=== PATIENT | female | born 1980 | race African-American/Black ===

== ENCOUNTER 2016-10-27 12:44 | Emergency (ER) | payer OTHER ==
[~2016-10-27] VITALS: Ht 167.6 cm; Wt 62.2 kg
[~2016-10-27 12:44] MED LIST: AMITRIPTYLINE H10 MG PO; AMITRIPTYLINE H25 MG PO; ASCORBIC ACID500 M3 PO; ASPIRIN81 M1 PO; AVENTYL,PAMELOR10 MG PO; CITALOPRAM HBR20 MG PO; CYMBALTA60 MG PO; DIAMOX250 MG PO; DILANTIN100 MG PO; ENDOCET 5-3251 EACH PO; FAMOTIDINE40 MG PO; FERROUS SULFAT325 MG PO; FLEXERIL10 MG PO; FOLIC ACID1 MG PO; LEVETIRACETAM1000 MG PO; LOVENOX40 MG/0.4 SC; MOTRIN600 MG PO; NOHOMEMEDS; SENNA-TIME S T1 EACH PO; THERAGRAN1 TABLET PO; TOPIRAMATE25 MG PO; TRAMADOL HCL50 MG PO; TYLENOL WITH C1 EACH PO; WARFARIN SODIUM1 MG PO
[2016-10-27 13:51] LABS: HEMATOCRIT 42.4 % (36.0-46.0); MCH 22.2 PG (29.0-34.0); MCV 74.1 FL (83-99); RBC DIS.WIDTH-CV 13.7 % (11.8-14.6); RBC DIS.WIDTH-SD 36.1 % (39-53); RED BLOOD COUNT 5.72 M/uL (3.80-5.20); WHITE BLOOD COUNT 4.1 K/uL (4.1-10.2)
[2016-10-27 13:52] LABS: CHLORIDE 108 mEq/L (99-109); POTASSIUM 3.7 mEq/L (3.7-5.4); SODIUM 140 mEq/L (136-147)
[2016-10-27 13:54] LABS: GLUCOSE 87 mg/dL (70-99)
[2016-10-27 13:55] LABS: ANION GAP 7 MEQ/L (2-14)
[2016-10-27 13:58] LABS: GFR ESTIMATE (CALCULATED) > 59 mL/min/
[2016-10-27 13:59] LABS: UREA NITROGEN (BUN) 6 mg/dL (9-23)
[2016-10-27 14:01] LABS: TROP-I INTERPRETATION NEGATIVE; TROPONIN-I < 0.01 ng/mL (0.0-0.30)
[2016-10-27 14:06] LABS: MEAN PLAT.VOLUME 10.2 uM^3 (9.5-12.4); PLATELET COUNT 240 K/uL (156-360)
[2016-10-27 15:09] LABS: INTER. NORMALIZED RATIO 2.7; PROTHROMBIN TIME 27.9 (9.2-11.2); PTT 38.4 (25-32)
[2016-10-27 15:39] LABS: TROP-I INTERPRETATION NEGATIVE; TROPONIN-I 0.01 ng/mL (0.0-0.30)
[2016-10-27 16:56] VITALS: BP 121/77
== END 2016-10-27 16:57 | disposition home or self-care (01) ==
LOC: EME 12:44 → RME 12:44
PROVIDERS: Physician Assistant
DX: R07.9 Chest pain, unspecified (principal); R79.1 Abnormal coagulation profile; Z95.2 Presence of prosthetic heart valve; Z86.73 Personal history of transient ischemic attack (TIA), and cerebral infarction without residual deficits; R56.9 Unspecified convulsions; Z79.01 Long term (current) use of anticoagulants
CPT/HCPCS: 71020; 80048; 84484; 85027; 85610; 85730; 93005; 99281; 99284

== ENCOUNTER 2017-03-06 10:04 | Emergency (ER) | payer OTHER ==
[~2017-03-06] VITALS: Ht 167.6 cm; Wt 62.9 kg
[2017-03-06 13:38] LABS: HEMATOCRIT 39.2 % (36.0-46.0); MCH 22.3 PG (29.0-34.0); MCHC 29.8 G/DL (30.0-36.0); MCV 74.8 FL (83-99); MEAN PLAT.VOLUME 10.4 uM^3 (9.5-12.4); PLATELET COUNT 189 K/uL (156-360); RBC DIS.WIDTH-CV 13.9 % (11.8-14.6); RED BLOOD COUNT 5.24 M/uL (3.80-5.20); WHITE BLOOD COUNT 3.4 K/uL (4.1-10.2)
[2017-03-06 13:42] LABS: CHLORIDE 109 mEq/L (99-109); POTASSIUM 3.9 mEq/L (3.7-5.4); SODIUM 143 mEq/L (136-147)
[2017-03-06 13:44] LABS: GLUCOSE 78 mg/dL (70-99)
[2017-03-06 13:45] LABS: ANION GAP 10 MEQ/L (2-14)
[2017-03-06 13:47] LABS: GFR ESTIMATE (CALCULATED) > 59 mL/min/
[2017-03-06 13:48] LABS: UREA NITROGEN (BUN) 4 mg/dL (9-23)
[2017-03-06 14:56] LABS: INTER. NORMALIZED RATIO 3.2; PROTHROMBIN TIME 36.8 SEC (10.2-12.9)
[2017-03-06 17:26] VITALS: BP 104/73
== END 2017-03-06 17:39 | disposition home or self-care (01) ==
LOC: EME 10:04
PROVIDERS: Emergency Medicine
DX: R06.00 Dyspnea, unspecified (principal); R06.02 Shortness of breath; R05 Cough; Z86.73 Personal history of transient ischemic attack (TIA), and cerebral infarction without residual deficits; Z79.01 Long term (current) use of anticoagulants; Z95.2 Presence of prosthetic heart valve
CPT/HCPCS: 71020; 71275; 80048; 85027; 85610; 93005; 99281; 99285